=== PATIENT | female | born 1985 | race Asian ===

== ENCOUNTER 2017-01-05 09:00 | Emergency (ER) | payer OTHER ==
[2017-01-05 09:13] VITALS: BP 129/83
[2017-01-05] MEDS ORDERED: Acetaminophen TAB* 325 MG PO ONE (09:25)
--- NOTE | 2017-01-05 09:42 | ED ---
Influenza-Like Illness - HPI Summary HPI Summary: cough and congestion for two days. Fever as well and myalgias. - History of Current Complaint Chief Complaint: UCRespiratory Time Seen by Provider: 01/05/17 09:24 Onset/Duration: Gradual Onset, Lasting Days Severity: Moderate Associated Signs & Symptoms: Fever, Myalgia, Cough, Nasal Congestion, Headache - Allergy/Home Medications Allergies/Adverse Reactions: Allergies Allergy/AdvReac Type Severity Reaction Status Date / Time No Known Allergies Allergy Verified 01/05/17 09:08 Home Medications: Home Medications Ibuprofen TAB* [Advil TAB*] 600 mg PO Q6H PRN 01/05/17 [History Confirmed ] PMH/Surg Hx/FS Hx/Imm Hx Previously Healthy: Yes Endocrine/Hematology History: Denies: Hx Anticoagulant Therapy Infectious Disease History: No Infectious Disease History: Denies: Traveled Outside the in Last 30 Days - Family History Known Family History: Positive: None - Social History Occupation: Employed Part-time Lives: With Family Alcohol Use: None Substance Use Type: Reports: None Smoking Status (MU): Never Smoked Tobacco Have You Smoked in the Last Year: No Review of Systems All Other Systems Reviewed And Are Negative: Yes Physical Exam Triage Information Reviewed: Yes Vital Signs On Initial Exam: Initial Vitals Temp Pulse Resp BP Pulse Ox 101.4 F 130 18 129/83 100 01/05/17 09:09 01/05/17 09:09 01/05/17 09:09 01/05/17 09:09 01/05/17 09:09 Vital Signs Reviewed: Yes Appearance: Positive: No Pain Distress, Well-Nourished, Ill-Appearing - Mild malaise. Skin: Positive: Warm, Dry Head/Face: Positive: Normal Head/Face Inspection Eyes: Positive: Normal, EOMI, RUTHIE, Conjunctiva Clear. Negative: Conjunctiva Inflammed, Discharge ENT: Positive: Pharynx normal, Nasal congestion, TMs normal. Negative: Pharyngeal erythema, Nasal drainage, TM bulging, TM dull, TM red, Tonsillar swelling, Tonsillar exudate, Trismus, Muffled/hoarse voice Neck: Positive: Supple, Nontender, No Lymphadenopathy Respiratory/Lung Sounds: Positive: Clear to Auscultation, Breath Sounds Present. Negative: Rales, Rhonchi, Stridor, Wheezes, Unable to speak in full sentences Cardiovascular: Positive: Normal, Pulses are Symmetrical in both Upper and Lower Extremities Abdomen Description: Positive: Nontender, No Organomegaly, Soft Musculoskeletal: Positive: Normal, Strength/ROM Intact. Negative: Edema Left, Edema Right Neurological: Positive: Normal, Sensory/Motor Intact, Alert, Oriented to Person Place, Time, CN Intact II-III Diagnostics - Vital Signs Vital Signs Temp Pulse Resp BP Pulse Ox 01/05/17 09:09 101.4 F 130 18 129/83 100 - Laboratory Lab Results: Lab Results 01/05/17 Range/Units 09:20 Influenza A (Rapid) Negative (Negative) Influenza B (Rapid) Positive H (Negative) Lab Statement: Any lab studies that have been ordered have been reviewed, and results considered in the medical decision making process. Flu Symptom Course/Dx - Course Course Of Treatment: INfluenza B. I will prophylacticly dose tamiflu for 4yo son. I have called it in to [facility]. - Diagnoses Differential Diagnosis/HQI/PQRI: Positive: Bronchitis, Broncholiolitis, Influenza, Pneumonia, RSV, Upper Respiratory Infection Provider Diagnoses: Influenza B Discharge - Discharge Plan Condition: Good Disposition: HOME Prescriptions: Oseltamivir CAP* [Tamiflu CAP*] 75 mg PO BID #10 cap Patient Education Materials: Influenza (ED) Referrals: Lam SMITH,Pamela [Primary Care Provider] - If Needed
== END 2017-01-05 09:46 | disposition home or self-care (01) ==
LOC: UCCORT 09:00
DX: J11.1 Influenza due to unidentified influenza virus with other respiratory manifestations (principal)
CPT/HCPCS: 87502; 99212; A9270-GY; G0463

== ENCOUNTER 2019-01-10 09:31 | Emergency (ER) | payer BC, OTHER ==
[2019-01-10 10:36] VITALS: BP 115/75
--- NOTE | 2019-01-10 10:44 | UC ---
Skin Complaint HPI - HPI Summary HPI Summary: Pt presents with concern for erythematous area on abdomen where tick bit her yesterday while doing yard work. Pt removed tick at home yesterday an dwoke this morning noting increased redness at bite site. - History of Current Complaint Chief Complaint: UCSkin Time Seen by Provider: 01/10/19 10:30 Stated Complaint: SKIN TICK BITE Hx Obtained From: Patient Hx Last Menstrual Period: 12/17/18 ?: No Onset/Duration: Sudden Onset Timing: Constant Onset Severity: Mild Current Severity: Mild Pain Intensity: 0 Location: Discrete - LLQ Character: Redness Aggravating Factor(s): Nothing Alleviating Factor(s): Nothing Associated Signs & Symptoms: Positive: Negative Related History: Possible Reaction to: Insect - Allergy/Home Medications Allergies/Adverse Reactions: Allergies Allergy/AdvReac Type Severity Reaction Status Date / Time No Known Allergies Allergy Verified 01/10/19 10:30 PMH/Surg Hx/FS Hx/Imm Hx Previously Healthy: Yes Other History Of: Negative For: Anticoagulant Therapy - Surgical History Surgical History: None - Family History Known Family History: Positive: Cardiac Disease - Social History Occupation: Employed Full-time Lives: With Family Alcohol Use: Rare Substance Use Type: None Smoking Status (MU): Never Smoked Tobacco Have You Smoked in the Last Year: No - Immunization History Hx Tetanus, Diphtheria Vaccination: Yes Vaccination Up to Date: Yes Review of Systems All Other Systems Reviewed And Are Negative: Yes Constitutional: Positive: Negative Skin: Positive: Other - erythema LLQ ~ 4 mm Eyes: Positive: Negative ENT: Positive: Negative Respiratory: Positive: Negative Cardiovascular: Positive: Negative Gastrointestinal: Positive: Negative Genitourinary: Positive: Negative Motor: Positive: Negative Neurovascular: Positive: Negative Musculoskeletal: Positive: Negative Neurological: Positive: Negative Psychological: Positive: Negative Is Patient Immunocompromised?: No Physical Exam Triage Information Reviewed: Yes Appearance: Well-Appearing Vital Signs: Initial Vital Signs Temp 98.5 F 01/10/19 10:30 Pulse 80 01/10/19 10:30 Resp 15 01/10/19 10:30 BP 115/75 01/10/19 10:30 Pulse Ox 100 01/10/19 10:30 Vital Signs Reviewed: Yes Eye Exam: Normal ENT Exam: Normal Dental Exam: Normal Neck exam: Normal Respiratory: Positive: No respiratory distress Musculoskeletal Exam: Normal Neurological Exam: Normal Psychological Exam: Normal Skin Exam: Other - mild erytheam circular area on LLQ of abdomen Course/Dx - Differential Diagnoses - Skin Complaint Differential Diagnoses: Cellulitis, Tick Born Illness - Diagnoses Provider Diagnosis: Insect bite Discharge - Sign-Out/Discharge Documenting (check all that apply): Patient Departure All imaging exams completed and their final reports reviewed: No Studies - Discharge Plan Condition: Stable Disposition: HOME Prescriptions: DOXYcycline CAP(*) [DOXYcycline 100MG CAP(*)] 200 mg PO ONCE #2 cap Patient Education Materials: Insect Bite or Sting (ED) Referrals: Lam SMITH,Pamela [Primary Care Provider] - If Needed - Billing Disposition and Condition Condition: STABLE Disposition: Home
== END 2019-01-10 10:50 | disposition home or self-care (01) ==
LOC: UCCORT 09:31
DX: S30.861A Insect bite (nonvenomous) of abdominal wall, initial encounter (principal); W57.XXXA Bitten or stung by nonvenomous insect and other nonvenomous arthropods, initial encounter; Y93.H2 Activity, gardening and landscaping
CPT/HCPCS: 99212; G0463

== ENCOUNTER 2019-03-20 12:20 | Emergency (ER) | payer BC ==
[2019-03-20 12:50] VITALS: BP 115/78
--- NOTE | 2019-03-20 13:22 | UC ---
Throat Pain/Nasal Heriberto HPI - HPI Summary HPI Summary: sore throat x 1 day no fever, + chills, no cough, no runny nose pain is 8 out of 10, worse with eating, better with Tylenol - History of Current Complaint Chief Complaint: UCGeneralIllness Stated Complaint: SORE THROAT Time Seen by Provider: 03/20/19 13:16 Hx Obtained From: Patient Hx Last Menstrual Period: 03/10/19 Onset/Duration: Gradual Onset, Lasting Days - 1, Still Present Severity: Severe Pain Intensity: 9 Cough: None Associated Signs & Symptoms: Negative: Drooling, Wheezing, Hoarseness, Sinus Discomfort, Nasal Discharge, Fever, Vomiting, Rash - Allergies/Home Medications Allergies/Adverse Reactions: Allergies Allergy/AdvReac Type Severity Reaction Status Date / Time No Known Allergies Allergy Verified 03/20/19 12:46 PMH/Surg Hx/FS Hx/Imm Hx Previously Healthy: Yes Other History Of: Negative For: Anticoagulant Therapy - Surgical History Surgical History: None - Family History Known Family History: Positive: None, Cardiac Disease - Social History Alcohol Use: Rare Substance Use Type: None Smoking Status (MU): Never Smoked Tobacco Have You Smoked in the Last Year: No - Immunization History Hx Tetanus, Diphtheria Vaccination: Yes Vaccination Up to Date: Yes Review of Systems All Other Systems Reviewed And Are Negative: Yes Constitutional: Positive: Negative Skin: Positive: Negative Eyes: Positive: Negative ENT: Positive: Sore Throat Respiratory: Positive: Negative Is Patient Immunocompromised?: No Physical Exam Triage Information Reviewed: Yes Appearance: Well-Appearing, No Pain Distress, Well-Nourished Vital Signs: Initial Vital Signs Temp 98.5 F 03/20/19 12:43 Pulse 96 03/20/19 12:43 Resp 16 03/20/19 12:43 BP 115/78 03/20/19 12:43 Pulse Ox 100 03/20/19 12:43 Vital Signs Reviewed: Yes Eye Exam: Normal Eyes: Positive: Conjunctiva Clear ENT: Positive: Normal ENT inspection, Hearing grossly normal, Pharyngeal erythema, TMs normal. Negative: Nasal congestion, Nasal drainage, TM bulging, TM dull, TM red, Tonsillar swelling, Tonsillar exudate, Trismus Neck: Positive: Supple, Nontender, No Lymphadenopathy Respiratory: Positive: Chest non-tender, Lungs clear, Normal breath sounds, No respiratory distress Cardiovascular: Positive: RRR, No Murmur Abdominal Exam: Normal Skin Exam: Normal Throat Pain/Nasal Course/Dx - Differential Dx/Diagnosis Provider Diagnosis: Strep pharyngitis Discharge - Sign-Out/Discharge Documenting (check all that apply): Patient Departure All imaging exams completed and their final reports reviewed: No Studies - Discharge Plan Condition: Stable Disposition: HOME Prescriptions: Amoxicillin PO (*) [Amoxicillin 875 MG (*)] 875 mg PO BID #20 tab Patient Education Materials: Strep Throat (ED) Referrals: Lam SMITH,Pamela [Primary Care Provider] - If Needed - Billing Disposition and Condition Condition: STABLE Disposition: Home
== END 2019-03-20 13:23 | disposition home or self-care (01) ==
LOC: UCCORT 12:20
DX: J02.0 Streptococcal pharyngitis (principal); B95.0 Streptococcus, group A, as the cause of diseases classified elsewhere
CPT/HCPCS: 87651; 99212; G0463

== ENCOUNTER 2019-06-12 17:00 | Emergency (ER) | payer BC ==
[2019-06-12 19:08] VITALS: BP 120/77
--- NOTE | 2019-06-12 19:17 | UC ---
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 - History of Current Complaint Chief Complaint: UCRespiratory Stated Complaint: SORE THROAT Time Seen by Provider: 06/12/19 19:11 Hx Obtained From: Patient Hx Last Menstrual Period: 06/12/19 Onset/Duration: Gradual Onset, Lasting Days - 1 Severity: Moderate Pain Intensity: 10 Cough: Nonproductive Associated Signs & Symptoms: Positive: Dysphagia. Negative: Wheezing, Sinus Discomfort, Fever - Allergies/Home Medications Allergies/Adverse Reactions: Allergies Allergy/AdvReac Type Severity Reaction Status Date / Time No Known Allergies Allergy Verified 06/12/19 19:08 PMH/Surg Hx/FS Hx/Imm Hx Previously Healthy: Yes Other History Of: Negative For: Anticoagulant Therapy - Surgical History Surgical History: None - Family History Known Family History: Positive: Other - father of stomach cancer. - Social History Occupation: Employed Full-time Alcohol Use: None Substance Use Type: None Smoking Status (MU): Never Smoked Tobacco Have You Smoked in the Last Year: No - Immunization History Hx Tetanus, Diphtheria Vaccination: Yes Vaccination Up to Date: Yes Review of Systems All Other Systems Reviewed And Are Negative: Yes Constitutional: Positive: Chills, Fatigue ENT: Positive: Sore Throat Respiratory: Positive: Cough Cardiovascular: Positive: Negative Gastrointestinal: Positive: Negative Genitourinary: Positive: Other - has IUD in place. Physical Exam Triage Information Reviewed: Yes Appearance: Ill-Appearing - mildly unwell Vital Signs: Initial Vital Signs Temp 98.5 F 06/12/19 19:00 Pulse 101 06/12/19 19:00 Resp 16 06/12/19 19:00 BP 120/77 06/12/19 19:00 Pulse Ox 98 06/12/19 19:00 Eyes: Positive: Conjunctiva Clear ENT: Positive: Pharyngeal erythema, TMs normal, Tonsillar swelling. Negative: Tonsillar exudate Neck: Positive: Supple, No Lymphadenopathy Respiratory: Positive: Lungs clear, Normal breath sounds Cardiovascular: Positive: RRR, No Murmur Musculoskeletal Exam: Normal Neurological Exam: Normal Psychological Exam: Normal Skin Exam: Normal Diagnostics - Laboratory Lab Results: Rapid strep negative. Throat Pain/Nasal Course/Dx - Course Course Of Treatment: symptomatic treatment using ibuprofen and salt water gargling. - Differential Dx/Diagnosis Differential Diagnosis/HQI/PQRI: Laryngitis, Pharyngitis, Tonsillitis, URI Provider Diagnosis: Pharyngitis Discharge ED - Sign-Out/Discharge Documenting (check all that apply): Patient Departure All imaging exams completed and their final reports reviewed: No Studies - Discharge Plan Condition: Stable Disposition: HOME Patient Education Materials: Pharyngitis (ED) Forms: *Work Release Referrals: Lam SMITH,Pamela [Primary Care Provider] - Additional Instructions: Begin use of ibuprofen 600mg up to 3 times daily for control of pain. Use warm water and salt gargles to relieve discomfort. Off work tomorrow; follow up if you develop fever or worsening cough. - Billing Disposition and Condition Condition: STABLE Disposition: Home
[2019-06-12] MEDS ORDERED: Ibuprofen TAB* 600 MG PO ONE (19:29)
== END 2019-06-12 19:37 | disposition home or self-care (01) ==
LOC: UCCORT 17:00
DX: J02.9 Acute pharyngitis, unspecified (principal)
CPT/HCPCS: 87651; 99212; A9270-GY; G0463

== ENCOUNTER 2019-06-17 15:05 | Emergency (ER) | payer BC ==
[2019-06-17 16:02] VITALS: BP 114/76
--- NOTE | 2019-06-17 16:21 | UC ---
Throat Pain/Nasal Heriberto HPI - HPI Summary HPI Summary: 33-year-old woman comes in with a chief complaint of upper respiratory tract infection symptoms for 9 days. Started out as a runny nose sore throat over time it's become pressure now in her maxillary sinuses she's got yellow and green rhinorrhea she is also coughing up some sputum which is also green. No fevers measured. No shortness of breath. - History of Current Complaint Chief Complaint: UCRespiratory Stated Complaint: SINUS CONCERN Time Seen by Provider: 06/17/19 16:13 Hx Last Menstrual Period: 06/09/19 Pain Intensity: 6 - Allergies/Home Medications Allergies/Adverse Reactions: Allergies Allergy/AdvReac Type Severity Reaction Status Date / Time No Known Allergies Allergy Verified 06/17/19 15:57 PMH/Surg Hx/FS Hx/Imm Hx Previously Healthy: Yes Other History Of: Negative For: Anticoagulant Therapy - Surgical History Surgical History: None - Family History Known Family History: Positive: None, Cardiac Disease, Other - father of stomach cancer. - Social History Alcohol Use: None Substance Use Type: None Smoking Status (MU): Never Smoked Tobacco Have You Smoked in the Last Year: No - Immunization History Hx Tetanus, Diphtheria Vaccination: Yes Vaccination Up to Date: Yes Review of Systems All Other Systems Reviewed And Are Negative: Yes Constitutional: Positive: Other - SEE HPI Skin: Positive: Negative Eyes: Positive: Negative ENT: Positive: Sore Throat, Nasal Discharge, Sinus Congestion, Sinus Pain/ Tenderness Respiratory: Positive: Cough Cardiovascular: Positive: Negative Gastrointestinal: Positive: Negative Motor: Positive: Negative Neurovascular: Positive: Negative Musculoskeletal: Positive: Negative Neurological: Positive: Negative Psychological: Positive: Negative Is Patient Immunocompromised?: No Physical Exam Triage Information Reviewed: Yes Appearance: No Pain Distress, Well-Nourished, Ill-Appearing - MILD Vital Signs: Initial Vital Signs Temp 97.8 F 06/17/19 15:57 Pulse 86 06/17/19 15:57 Resp 16 06/17/19 15:57 BP 114/76 06/17/19 15:57 Pulse Ox 100 06/17/19 15:57 Vital Signs Reviewed: Yes Eye Exam: Normal Eyes: Positive: Conjunctiva Clear ENT: Positive: Pharyngeal erythema, Nasal congestion, Nasal drainage, TMs normal Neck: Positive: Supple Respiratory: Positive: Lungs clear, Normal breath sounds, No respiratory distress Cardiovascular: Positive: RRR Musculoskeletal: Positive: Strength Intact, ROM Intact Neurological: Positive: Alert, Muscle Tone Normal Psychological: Positive: Age Appropriate Behavior Skin Exam: Normal Throat Pain/Nasal Course/Dx - Course Course Of Treatment: DISCUSSED VIRAL VERSES BACTERIAL INFECTIONS AND THE ROLE OF ANTIBIOTIC. PATIENT PREFERS TO BE ON ANTIBIOTICS AT THIS TIME. - Differential Dx/Diagnosis Provider Diagnosis: Sinusitis Discharge ED - Sign-Out/Discharge Documenting (check all that apply): Patient Departure All imaging exams completed and their final reports reviewed: No Studies - Discharge Plan Condition: Stable Disposition: HOME Prescriptions: Amoxicillin PO (*) [Amoxicillin 875 MG (*)] 875 mg PO BID #20 tab Patient Education Materials: Sinusitis (ED) Referrals: Lam SMITH,Pamela [Primary Care Provider] - Additional Instructions: FOLLOW UP WITH YOUR DOCTOR IF NOT COMPLETELY IMPROVED. TRY SALINE (SALT WATER) NASAL SPRAY OR A STEROID NASAL SPRAY SUCH FLONASE IF HELPFUL. GET RECHECKED SOONER IF WORSE OR ANY QUESTIONS OR CONCERNS. - Billing Disposition and Condition Condition: STABLE Disposition: Home
== END 2019-06-17 16:26 | disposition home or self-care (01) ==
LOC: UCCORT 15:05
DX: J32.9 Chronic sinusitis, unspecified (principal)
CPT/HCPCS: 99212; G0463